=== PATIENT | male | born 1995 | race African-American/Black ===

== ENCOUNTER 2021-03-25 18:24 | Emergency (ER) | payer SELFPAY | END 2021-03-25 21:54 | disposition left against medical advice (07) | LOC: CSHERS 18:24 | DX: Z53.21 Procedure and treatment not carried out due to patient leaving prior to being seen by health care provider (principal) ==

== ENCOUNTER 2024-06-16 09:30 | Emergency (ER) | payer MEDICAID ==
[2024-06-16 10:06] LABS: #Basophils 0.03 10x3/uL (0.0-0.2); #Eosinphils 0.05 10x3/uL (0.0-0.5); #Monocytes 0.27 10x3/uL (0.0-1.1); #Neutrophils 3.75 10x3/uL (1.5-8.4); %Basophils 0.5 % (0.0-2.0); %Eosinophils 0.9 % (0.0-6.0); %Lymphocytes 24.7 % (18.0-47.0); %Monocytes 4.9 % (0.0-10.0); %Neutrophils 68.8 % (40.0-75.0); Hematocrit 41.9 % (38.8-50.0); Mean Corpuscular HGB CONC 35.8 g/dL (32.0-36.0); Mean Corpuscular Hemoglobin 33.9 pg (27.0-33.0); Mean Corpuscular Volume 94.6 fL (81.2-95.1); Platelet Count 172 10x3/uL (150-450); RBC Distribution Width 12.2 % (11.5-14.5); Red Blood Cell (RBC) Count 4.43 10x6/uL (4.32-5.72); White Blood Cell (WBC) Count 5.5 10x3/uL (3.5-10.5)
[2024-06-16 10:21] LABS: ALT (SGPT) 23 U/L (8-55); AST (SGOT) 26 U/L (5-34); Albumin 4.6 g/dL (3.5-5.0); Alkaline Phosphatase 81 U/L (40-110); Anion Gap 15 mmol/L (10-20); BUN (Urea Nitrogen) 15 mg/dL (8.9-20.6); Bilirubin, Total 2.8 mg/dL (0.2-1.2); Calc. Creatinine Clearance 0 mL/min (70-130); Calcium 9.8 mg/dL (7.8-10.44); Carbon Dioxide 25 mmol/L (22-29); Chloride 103 mmol/L (98-107); Estimated GFR 124; Glucose 85 mg/dL (70-105); Lipase 22 U/L (8-78); Potassium 4.6 mmol/L (3.5-5.1); Protein, Total 7.6 g/dL (6.0-8.3); Sodium 138 mmol/L (136-145)
[2024-06-16 10:24] LABS: Troponin I Less than 0.010 ng/mL (< 0.028)
== END 2024-06-16 12:52 | disposition home or self-care (01) ==
LOC: CSHERS 09:30
DX: R07.9 Chest pain, unspecified (principal); E80.7 Disorder of bilirubin metabolism, unspecified
CPT/HCPCS: 71046; 74177; 80053; 83690; 84484; 85025; 93005